=== PATIENT | female | born 1970 | race Two or more races ===

== ENCOUNTER 2019-08-15 12:34 | Day surgery (SDC) | payer OTHER ==
[2019-08-08 10:16] LABS: ABSOLUTE EOSINOPHILS # (AUTO) 0.2 10^3/uL (0.0-0.6); ABSOLUTE LYMPHOCYTES (AUTO) 1.3 10^3/uL (0.5-4.7); ABSOLUTE MONOCYTES (AUTO) 0.7 10^3/uL (0.1-1.4); ABSOLUTE NEUT (AUTO) 7.8 10^3/uL (1.7-8.2); BASOPHILS % (AUTO) 0.4 % (0-2); EOSINOPHILS % (AUTO) 1.9 % (0-6); HEMOGLOBIN 14.1 g/dL (12.0-15.5); LYMPHOCYTES % (AUTO) 12.7 % (13-45); MEAN CORPUSCULAR HGB CONC 34.3 g/dL (32.0-36.0); MEAN CORPUSCULAR VOLUME 102 fl (80-97); MONOCYTES % (AUTO) 6.7 % (3-13); PLATELET COUNT 293 10^3/uL (150-450); RED BLOOD COUNT 4.02 10^6/uL (3.72-5.28); SEGMENTED NEUTROPHILS % (AUTO) 78.3 % (42-78); TOTAL CELLS COUNTED % (AUTO) 100 %; WHITE BLOOD COUNT 9.9 10^3/uL (4.0-10.5)
[2019-08-08 10:43] LABS: ANION GAP 11 (5-19); BLOOD UREA NITROGEN 12 mg/dL (7-20); CALCIUM 9.5 mg/dL (8.4-10.2); CARBON DIOXIDE 25 mmol/L (22-30); CHLORIDE 100 mmol/L (98-107); GLUCOSE 105 mg/dL (75-110); POTASSIUM 4.4 mmol/L (3.6-5.0)
--- NOTE | 2019-08-08 12:04 | RADIOLOGY REPORT (SQ) ---
EXAM DESCRIPTION: CHEST PA/LATERAL COMPLETED DATE/TIME: 08/08/2019 11:01 am REASON FOR STUDY: PRE-OP COMPARISON: 01/23/2013 and 07/07/2013 EXAM PARAMETERS: NUMBER OF VIEWS: two views TECHNIQUE: Digital Frontal and Lateral radiographic views of the chest acquired. RADIATION DOSE: NA LIMITATIONS: none FINDINGS: LUNGS AND PLEURA: No opacities, masses or pneumothorax. No pleural effusion. MEDIASTINUM AND HILAR STRUCTURES: No masses or contour abnormalities. HEART AND VASCULAR STRUCTURES: Stable appearance, heart size at the upper limits normal. BONES: No acute findings. HARDWARE: None in the chest. OTHER: No other significant finding. IMPRESSION: 1. No significant interval changes since the prior examinations dating back to 01/23/2013 . No acute findings. TECHNICAL DOCUMENTATION: JOB ID: [id number] [employer]- All Rights Reserved Reading location - IP/workstation name: [email or web address]
--- NOTE | 2019-08-08 23:51 | EKG REPORT ---
SEVERITY:- ABNORMAL ECG - SINUS RHYTHM PROBABLE LEFT ATRIAL ABNORMALITY PROBABLE LEFT VENTRICULAR HYPERTROPHY : Confirmed by: Shanda Kingston MD 08-Aug-2019 23:50:13
[~2019-08-15 12:34] MED LIST: CEFAZOLIN SODIUM 2 GM in DEXTROSE 5%-WATER 100 ML IV PRN; DEXAMETHASONE SOD PHOSPHATE INJ 4 MG/1 ML VIAL ONE; FENTANYL CITRATE INJ/PF 100 MCG/2 ML AMPUL ONE; LACTATED RINGERS 1000 ML IV PRN; LIDOCAINE 0.5% INJ-PF (5 MG/ML) 50 ML SDV SUBCUT PRN; MIDAZOLAM 2 MG/2 ML INJ ONE; ONDANSETRON HCL INJ/PF 4 MG/2 ML SDV ONE; PROPOFOL INJ 200 MG/20 ML VIAL IV ONE
[2019-08-15] MEDS ORDERED: SUCCINYLCHOLINE CHLORIDE INJ 200 MG/10 ML VIAL ONE (14:13)
[2019-08-15] MEDS ORDERED: FAMOTIDINE INJ/PF 20 MG/2 ML SDV IV ONE (14:43)
[2019-08-15] MEDS ORDERED: METOCLOPRAMIDE HCL INJ/PF 10 MG/2 ML SDV ONE (14:43)
[2019-08-15] MEDS ORDERED: MIDAZOLAM 2 MG/2 ML INJ ONE ×3 (14:43→15:17)
[2019-08-15] MEDS ORDERED: LIDOCAINE 2% INJ (20 MG/ML) 20 ML MDV ONE (14:49)
[2019-08-15] MEDS ORDERED: LIDOCAINE 2%/EPINEPHRINE INJ 20 ML VIAL ONE (14:49)
[2019-08-15] MEDS ORDERED: ROPIVACAINE HCL 0.5% INJ/PF (5 MG/1 ML) 30 ML SDV ONE (14:50)
[2019-08-15] MEDS ORDERED: PROMETHAZINE HCL INJ 25 MG/1 ML VIAL IV PRN ×2 (18:44)
[2019-08-15] MEDS ORDERED: DIPHENHYDRAMINE HCL 50 MG/ML VIAL IV PRN (18:44)
[2019-08-15] MEDS ORDERED: MEPERIDINE HCL/PF INJ 25 MG/1 ML DISP.SYRIN IV PRN (18:44)
[2019-08-15] MEDS ORDERED: ONDANSETRON HCL INJ/PF 4 MG/2 ML SDV IV PRN ×2 (18:44→20:45)
[2019-08-15] MEDS ORDERED: FENTANYL CITRATE INJ/PF 100 MCG/2 ML AMPUL IV PRN ×3 (18:44)
[2019-08-15] MEDS ORDERED: MORPHINE SULFATE 10 MG/ML INJ IV PRN (18:44)
[2019-08-15] MEDS ORDERED: BUPIVACAINE HCL 0.5 % INJ/PF 30 ML SDV ONE (19:50)
[2019-08-15] MEDS ORDERED: HYDROMORPHONE HCL INJ/PF 2 MG/ML AMPULE IV PRN (20:45)
[2019-08-15] MEDS ORDERED: OXYCODONE-ACETAMINOPHEN 5-325 MG TABLET PO PRN (20:45)
--- NOTE | 2019-08-15 20:46 | Discharge Summary ---
Discharge Summary (SDC) - Discharge Final Diagnosis: Left distal radius malunion Date of Surgery: 08/15/19 Discharge Date: 08/15/19 Condition: Good Treatment or Instructions: Schedule Follow Up w/ Dr. Omid Thomas @ [facility] for Surgery to be seen in 10-14 days or as scheduled [place]: [employer]: [place]: Ice and elevate Keep splint clean/dry/intact, do not remove. If your fingers become numb please unwrap the Mehul wrap but leave the splint in place, if the sensation does not return within 30 minutes please return to the emergency department. May begin finger range of motion attempting to make full fist. Please use ibuprofen (Motrin or Advil) 600-800 mg every 8 hours as needed for pain or fever DO NOT TAKE w/ TORADOL may use once TORADOL complete. You may also use acetaminophen (Tylenol) 1000 mg every 4-6 hours as needed for pain or fever. Please be aware that many medications contain acetaminophen, do not exceed a total of 1000 mg of acetaminophen every 6 hours. If ibuprofen and acetaminophen are not sufficient for your pain you may take the Percocet/[place]. Please be aware that the Percocet/[place] does contain Tylenol. Stool softener of choice when on pain medication. USE OF [id number] IBUPROFEN: Ibuprofen (Advil, Nuprin, Medipren, Motrin IB) is a medication for fever and pain control. In addition, it has anti- inflammatory effects which may be beneficial, especially in the treatment of injuries. It's best to take ibuprofen with food. Persons with ulcer disease or allergy to aspirin should notify their physician of this before taking ibuprofen. Ibuprofen can be given every four to six hours, for a total of four doses daily. Age Pain or fever dose Antiinflammatory dose 6-8 yr 200 mg (1 tab) 200 mg (1 tab) 9-11 yr 200 mg (1 tab) 200-400 mg (1-2 tab) 11-14 yr 200-400 mg (1-2 tab) 400 mg (2 tab) 15-adult 400 mg (2 tab) 600 mg (3 tab) ORAL NARCOTIC MEDICATION: You have been given a prescription for pain control. This medication is a narcotic. It's best taken with food, as nausea can result if taken on an empty stomach. Don't operate machinery or drive within six hours of taking this medication. Do not combine this medicine with alcohol, or with any medication which can cause sedation (such as cold tablets or sleeping pills) unless you get permission from the physician. Narcotics tend to cause constipation. If possible, drink plenty of fluids and eat a diet high in fiber and fruits. Please be aware that prescription narcotics also have the potential for abuse. People become addicted to these medications because of the general sense of wellbeing that they induce. This feeling along with a significant reduction in tension, anxiety, and aggression provides a stimulating seductive quality to these drugs. Once your pain is under control, we encourage you to discard your unused narcotics. Prescriptions: Ketorolac Tromethamine [Toradol 10 mg Tablet] 10 mg PO Q8HP PRN #12 tablet PRN Reason: Oxycodone HCl [Oxycontin Sr 10 mg Tablet] 10 mg PO Q12 PRN #10 tab.sr.12h PRN Reason: Oxycodone HCl/Acetaminophen [Percocet 7.5-325 mg Tablet] 1 - 2 tab PO Q6 PRN #25 tab PRN Reason: Referrals: FRANCES RUBIO MD [Primary Care Provider] - Discharge Diet: As Tolerated Respiratory Treatments at Home: Deep Breathing/Coughing, Incentive Spirometer Discharge Activity: No Lifting Over 10 Pounds, No Lifting/Push/Pulling Report the Following to Your Physician Immediately: Fever over 101 Degrees, Unusual Bleeding, Redness, Swelling, Warmth, Increased Soreness
[2019-08-15] MEDS ORDERED: PROPOFOL INJ 200 MG/20 ML VIAL IV ONE (20:52)
--- NOTE | 2019-08-15 20:56 | Operative Report ---
Operative Report DATE OF SURGERY: 08/15/19 PREOPERATIVE DIAGNOSIS: 1. Retained painful hardware left wrist. 2. Distal r adius malunion left wrist. 3. Left carpal tunnel syndrome POSTOPERATIVE DIAGNOSIS: Same OPERATION: 1. Removal of deep hardware left wrist. 2. Corrective osteotomy left distal radius w/ revision ORIF distal radius. 3. Left Open carpal tunnel release SURGEON: EMILIA ROSENTHAL ANESTHESIA: GA COMPLICATIONS: None ESTIMATED BLOOD LOSS: 25cc PROCEDURE: Indication for above procedure: 49-year-old female who sustained a open left distal radius fracture. Patient underwent operative fixation and outside facility. She subsequently followed up with me with hardware failure and malunion of her distal radius fracture along with carpal tunnel syndrome. At that point we discussed treatment options including operative versus nonoperative intervention after discussing risks and benefits of operative seizure decision was made to proceed with operative treatment. Risks and benefits were explained patient verbalized understanding consented for surgical procedure. Procedure In Detail: Patient was seen and evaluated in the preoperative holding area. The LEFT upper extremity was initialized and marked. Patient received 2g of Ancef IV for bacterial prophylaxis. Patient was taken back to the operative room where tra nsferred to the operative table and placed under general anesthesia. Once they were adequately anesthetized a nonsterile tourniquet was placed on the upper extremity. A surgical team debriefing was performed ensuring all instrumentation was available, the surgical procedure was discussed with possible concerns reviewed. The upper extremity was prepped with chlorhexidine and alcohol and draped in a sterile fashion. A timeout was done identifying correct patient, procedure and extremity everyone in attendance agree with this and verbalized no concerns. The extremity was exsanguinated the tourniquet was inflated to 250 mmHg. Examination under anesthesia demonstrated considerable DRUJ instability. Previous skin incision was utilized and extended proximally 2 cm and distally 1 cm. Blunt dissection was performed. FCR tendon sheath was identified and released. Palmar cutaneous branch of the median nerve was also identified and retracted. FPL tendon was carefully elevated from underlying scar tissue over the plate. There is no remnant of the pronator quadratus at the level of the plate. Sharp dissection was performed over the plate to expose all retained hardware. All 8 screws and plate were removed. Screw holes were debrided with a curette. The brachioradialis was then released from the styloid to further exposed the distal radius. A Acumed extra-articular distal radius 5 hole plate was then placed along the distal fragment and a anatomic position as covered by patient's anatomy and previous malunion. This was secured with 2 K wires distally and C-arm fluoroscopy was obtained confirming appropriate placement and adequate angulation to allow correction of patient's radial deviation deformity. Once optimal plate alignment was confirmed K wires were left in the plate and plate removed. Bone was then marked parallel to the K wires and with an oscillating saw osteotomy performed well phlebotomist medical lab assistant held irrigation. Osteotome was then utilized to complete the osteotomy dorsally. The plate was then placed over the K wires. Child Attendant held reduction of the osteotomy and plate was secured proximally with K wires and a reduction clamp. C-arm fluoroscopy was obtained mistreating acceptable alignment with zoroastrianism of radial inclination and improve radial height and normal volar tilt. There was improved ulnar variance along with DRUJ instability. Patient continued to have malunion of the lunate facet however it was adequately healed given patient's high likelihood of arthrosis at the radiolunate articulation did not feel intra-articular osteotomy was warranted with thought that zoroastrianism of patient's radial inclination and alignment may unload the radial lunate joint. Plate was brought flush down to the volar cortex with a reduction tenaculum. The Acumed plate was then secured distally with bicortical screw bringing the plate firmly down to bone. Remaining holes were drilled to but not through the far cortex. One fixed angle locking screw and 2 variable angle screws were placed. Previous cortex screw was exchanged for appropriate sized variable angle screw. Under C-arm fluoroscopy the radial styloid screws were then drilled and appropriate size variable angle screws placed. Proximal aspect of the plate was then secured with bicortical fixation in the dynamic hole. Further height was obtained via traction. Most proximal screw hole was then secured with bicortical fixation. Remaining 2 proximal holes were filled with appropriate size locking screw. Final C-arm fluoroscopy was then obtained demonstrating zoroastrianism of alignment. There was no crepitus with wrist range of motion. Previous DRUJ instability notably improved. Attention then turned to open carpal tunnel release. Longitudinal skin incision was made along the radial border of the ring finger. Blunt dissection was performed. A small peripheral veins were coagulated with bipolar cautery. Palmar fascia was incised in line with the skin incision identifying the transverse carpal ligament. Transverse carpal ligament was then released to the adipose protecting the superficial palmar arch. The transverse carpal ligament and antebrachial fascia was incised through the carpal tunnel incision and volar Harris incision to ensure adequate release. There was evidence of patent median artery. Neuro lysis was performed to the median nerve as well within the volar Harris approach to ensure no evidence of neural fibrosis. There is no remaining compression proximally or distally. There was notable compression hourglassing of the median nerve at the wrist flexion crease. Wound was copiously irrigated with normal saline. Skin was closed with interrupted horizontal mattress 4-0 nylon sutures. All wounds were copiously irrigated with normal saline. Vitoss synthetic bone graft was then impacted into the osteotomy site. Tourniquet was deflated. Any peripheral bleeding was controlled with bipolar cautery until the wound was dry. Deep soft tissues were closed with interrupted 4-0 Monocryl suture. Subcutaneous tissues were closed with interrupted 4-0 Monocryl suture. Skin was closed with running horizontal mattress 4-0 nylon suture. Patient was placed in a sugar tong splint with the wrist at neutral position. Sponge counts, instrument counts, needle counts were correct. Patient was then awoken from anesthesia. Transferred from the operating room table to the operating room stretcher. There was no intraoperative complications patient tolerated procedure well stable to PACU. Postoperative plan: Patient will follow in the office in 2 weeks at which point we will obtain radiographs and proceed with wound check. Patient will be placed in a short arm cast.
[2019-08-15] MEDS ORDERED: KETOROLAC TROMETHAMINE INJ/PF 30 MG/1 ML SDV ONE (21:14)
[2019-08-15] MEDS ORDERED: ACETAMINOPHEN 1,000 MG/100 ML RTUPB IV ONE (21:15)
[2019-08-15 22:10] VITALS: BP 166/104
--- NOTE | 2019-08-16 08:43 | RADIOLOGY REPORT (SQ) ---
EXAM DESCRIPTION: NO CHG FLUORO; WRIST LEFT 3 VIEWS COMPLETED DATE/TIME: 08/15/2019 8:33 pm REASON FOR STUDY: HARDWARE REMOVAL/ORIF L WRIST S52.532P COLLES' FRACTURE OF LEFT RADIUS, SUBS FOR CLOS FX W G56.02 CARPAL TUNNEL SYNDROME, LEFT UPPER LIMB COMPARISON: None. FLUOROSCOPY TIME: 1 minutes 10 seconds 3 images saved to PACS. TECHNIQUE: Intra-operative images acquired during surgical procedure to evaluate progress. NUMBER OF IMAGES: 3 LIMITATIONS: None. FINDINGS: Images of the wrist show hardware in place, reported revision. Correlate with operative n ote. IMPRESSION: IMAGE(S) OBTAINED DURING PROCEDURE. COMMENT: Quality ID [id number]: Final reports for procedures using fluoroscopy that document radiation exp osure indices, or exposure time and number of fluorographic images (if radiation exposure indices are not available) Please consult full operative report of the attending physician for description of the procedure. TECHNICAL DOCUMENTATION: JOB ID: [id number] [employer]- All Rights Reserved Reading location - IP/workstation name: [email or web address]
--- NOTE | 2019-08-16 08:43 | RADIOLOGY REPORT (SQ) ---
EXAM DESCRIPTION: NO CHG FLUORO; WRIST LEFT 3 VIEWS COMPLETED DATE/TIME: 08/15/2019 8:33 pm REASON FOR STUDY: HARDWARE REMOVAL/ORIF L WRIST S52.532P COLLES' FRACTURE OF LEFT RADIUS, SUBS FOR CLOS FX W G56.02 CARPAL TUNNEL SYNDROME, LEFT UPPER LIMB COMPARISON: None. FLUOROSCOPY TIME: 1 minutes 10 seconds 3 images saved to PACS. TECHNIQUE: Intra-operative images acquired during surgical procedure to evaluate progress. NUMBER OF IMAGES: 3 LIMITATIONS: None. FINDINGS: Images of the wrist show hardware in place, reported revision. Correlate with operative n ote. IMPRESSION: IMAGE(S) OBTAINED DURING PROCEDURE. COMMENT: Quality ID [id number]: Final reports for procedures using fluoroscopy that document radiation exp osure indices, or exposure time and number of fluorographic images (if radiation exposure indices are not available) Please consult full operative report of the attending physician for description of the procedure. TECHNICAL DOCUMENTATION: JOB ID: [id number] [employer]- All Rights Reserved Reading location - IP/workstation name: [email or web address]
== END 2019-08-15 22:25 | disposition home or self-care (01) ==
LOC: OROUT 12:34
PROVIDERS: ATTEND Orthopaedic Surgery
DX: S52.532P Colles' fracture of left radius, subsequent encounter for closed fracture with malunion (principal); X58.XXXD Exposure to other specified factors, subsequent encounter; G56.02 Carpal tunnel syndrome, left upper limb; T84.84XA Pain due to internal orthopedic prosthetic devices, implants and grafts, initial encounter; Y83.8 Other surgical procedures as the cause of abnormal reaction of the patient, or of later complication, without mention of misadventure at the time of the procedure; Y92.89 Other specified places as the place of occurrence of the external cause; E11.9 Type 2 diabetes mellitus without complications; I10 Essential (primary) hypertension; G47.33 Obstructive sleep apnea (adult) (pediatric)
CPT/HCPCS: 93005; 36415; 82962; 85025; 80048; 71046; 73110; 93010; 01830; 64721; 20680; 25405; J2795; J2250; J3490 ×3; J0690; J1100; J3010; J1885; J2765; J0330; J2405; J7060; J2704; S0028; J0131; C1713; C1769; C1898

== ENCOUNTER 2020-05-07 08:48 | Day surgery (SDC) | payer OTHER ==
[2020-05-03 10:08] LABS: HEMATOCRIT 40.4 % (36.0-47.0); HEMOGLOBIN 14.2 g/dL (12.0-15.5); MEAN CORPUSCULAR HGB CONC 35.2 g/dL (32.0-36.0); MEAN CORPUSCULAR VOLUME 103 fl (80-97); PLATELET COUNT 268 10^3/uL (150-450); RED BLOOD COUNT 3.95 10^6/uL (3.72-5.28); RED CELL DISTRIBUTION WIDTH 14.2 % (11.5-14.0); WHITE BLOOD COUNT 8.5 10^3/uL (4.0-10.5)
[2020-05-03 10:16] LABS: APPEARANCE,URINE SLIGHTLY-CLOUDY; BILIRUBIN,URINE NEGATIVE (NEGATIVE); COLOR,URINE YELLOW; GLUCOSE, URINE NEGATIVE (NEGATIVE); KETONES,URINE 20 mg/dL (NEGATIVE); LEUKOCYTE ESTERASE,URINE NEGATIVE (NEGATIVE); NITRITE,URINE NEGATIVE (NEGATIVE); PROTEIN,URINE 100 mg/dL (NEGATIVE); URINE SPECIFIC GRAVITY 1.019; UROBILINOGEN,URINE NEGATIVE mg/dL (<2.0)
[2020-05-03 10:27] LABS: ANION GAP 11 (5-19); BLOOD UREA NITROGEN 14 mg/dL (7-20); CALCIUM 9.6 mg/dL (8.4-10.2); CARBON DIOXIDE 24 mmol/L (22-30); CHLORIDE 101 mmol/L (98-107); GLUCOSE 122 mg/dL (75-110); POTASSIUM 4.3 mmol/L (3.6-5.0)
--- NOTE | 2020-05-03 12:18 | RADIOLOGY REPORT (SQ) ---
EXAM DESCRIPTION: CHEST PA/LATERAL IMAGES COMPLETED DATE/TIME: 05/03/2020 11:04 am REASON FOR STUDY: PRE-OP COMPARISON: 08/08/2019 EXAM PARAMETERS: NUMBER OF VIEWS: two views TECHNIQUE: Digital Frontal and Lateral radiographic views of the chest acquired. RADIATION DOSE: NA LIMITATIONS: none FINDINGS: LUNGS AND PLEURA: No opacities, masses or pneumothorax. No pleural effusion. MEDIASTINUM AND HILAR STRUCTURES: No masses or contour abnormalities. HEART AND VASCULAR STRUCTURES: Heart normal size. No evidence for failure. BONES: No acute findings. HARDWARE: None in the chest. OTHER: No other significant finding. IMPRESSION: NO SIGNIFICANT RADIOGRAPHIC FINDING IN THE CHEST. TECHNICAL DOCUMENTATION: JOB ID: [id number] 2010 [employer]- All Rights Reserved Reading location - IP/workstation name: [email or web address]
--- NOTE | 2020-05-03 13:02 | EKG REPORT ---
SEVERITY:- ABNORMAL ECG - SINUS TACHYCARDIA FIRST DEGREE AV BLOCK PROBABLE LEFT ATRIAL ABNORMALITY PROBABLE LEFT VENTRICULAR HYPERTROPHY : Confirmed by: Cayetano Hurley MD 03-May-2020 13:01:38
[~2020-05-07 08:48] MED LIST changes: +CEFAZOLIN 2 GM/D5W RTU 2 GM/50 ML RTUPB IV PRN; -CEFAZOLIN SODIUM 2 GM in DEXTROSE 5%-WATER 100 ML IV PRN; -DEXAMETHASONE SOD PHOSPHATE INJ 4 MG/1 ML VIAL ONE; +SUCCINYLCHOLINE CHLORIDE INJ 200 MG/10 ML VIAL ONE
[2020-05-07] MEDS ORDERED: CEFAZOLIN 2 GM/D5W RTU 2 GM/50 ML RTUPB IV ONE (10:28)
[2020-05-07] MEDS ORDERED: LIDOCAINE 1% INJ-PF (10 MG/ML) 30 ML SDV ONE (10:32)
[2020-05-07] MEDS ORDERED: LIDOCAINE 0.5% INJ-PF (5 MG/ML) 50 ML SDV ONE (11:21)
[2020-05-07] MEDS ORDERED: BUPIVACAINE HCL 0.5 % INJ/PF 30 ML SDV ONE (11:27)
[2020-05-07] MEDS ORDERED: MEPERIDINE HCL/PF INJ 25 MG/1 ML DISP.SYRIN IV PRN (13:20)
[2020-05-07] MEDS ORDERED: PROMETHAZINE HCL INJ 25 MG/1 ML VIAL IV PRN ×2 (13:20)
[2020-05-07] MEDS ORDERED: FENTANYL CITRATE INJ/PF 100 MCG/2 ML AMPUL IV PRN ×3 (13:20)
[2020-05-07] MEDS ORDERED: ONDANSETRON HCL INJ/PF 4 MG/2 ML SDV IV PRN ×2 (13:20→14:17)
[2020-05-07] MEDS ORDERED: DIPHENHYDRAMINE HCL 50 MG/ML VIAL IV PRN (13:20)
[2020-05-07] MEDS ORDERED: MORPHINE SULFATE 10 MG/ML INJ IV PRN (13:20)
[2020-05-07] MEDS ORDERED: HYDROMORPHONE HCL INJ/PF 2 MG/ML AMPULE IV PRN (14:17)
[2020-05-07] MEDS ORDERED: OXYCODONE-ACETAMINOPHEN 5-325 MG TABLET PO PRN (14:17)
--- NOTE | 2020-05-07 14:18 | Discharge Summary ---
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 Omid Thomas @ [facility] for Surgery to be seen in 10-14 days or as scheduled [place]: [place]: [place]: Ice and elevate Keep splint clean/dry/intact, do not remove. If your fingers become numb please unwrap the Mehul wrap but leave the splint in place, if the sensation does not return within 30 minutes please return to the emergency department. May begin finger range of motion attempting to make full fist. Please use ibuprofen (Motrin or Advil) 600-800 mg every 8 hours as needed for pain or fever DO NOT TAKE w/ TORADOL may use once TORADOL complete. You may also use acetaminophen (Tylenol) 1000 mg every 4-6 hours as needed for pain or fever. Please be aware that many medications contain acetaminophen, do not exceed a total of 1000 mg of acetaminophen every 6 hours. If ibuprofen and acetaminophen are not sufficient for your pain you may take the Percocet/[place]. Please be aware that the Percocet/[place] does contain Tylenol. Stool softener of choice when on pain medication. USE OF [id number] IBUPROFEN: Ibuprofen (Advil, Nuprin, Medipren, Motrin IB) is a medication for fever and pain control. In addition, it has anti- inflammatory effects which may be beneficial, especially in the treatment of injuries. It's best to take ibuprofen with food. Persons with ulcer disease or all ergy to aspirin should notify their physician of this before taking ibuprofen. Ibuprofen can be given every four to six hours, for a total of four doses daily. Age Pain or fever dose Antiinflammatory dose 6-8 yr 200 mg (1 tab) 200 mg (1 tab) 9-11 yr 200 mg (1 tab) 200-400 mg (1-2 tab) 11-14 yr 200-400 mg (1-2 tab) 400 mg (2 tab) 15-adult 400 mg (2 tab) 600 mg (3 tab) ORAL NARCOTIC MEDICATION: You have been given a prescription for pain control. This medication is a narcotic. It's best taken with food, as nausea can result if taken on an empty stomach. Don't operate machinery or drive within six hours of taking this medication. Do not combine this medicine with alcohol, or with any medication which can cause sedation (such as cold tablets or sleeping pills) unless you get permission from the physician. Narcotics tend to cause constipation. If possible, drink plenty of fluids and eat a diet high in fiber and fruits. Please be aware that prescription narcotics also have the potential for abuse. People become addicted to these medications because of the general sense of wellbeing that they induce. This feeling along with a significant reduction in tension, anxiety, and aggression provides a stimulating seductive quality to these drugs. Once your pain is under control, we encourage you to discard your unused narcotics. Prescriptions: Oxycodone HCl [Oxycontin Sr 10 mg Tablet] 10 mg PO Q12 PRN #14 tab.sr.12h PRN Reason: Oxycodone HCl/Acetaminophen [Percocet 7.5-325 mg Tablet] 1 tab PO Q6 PRN #25 tab PRN Reason: Referrals: FRANCES RUBIO MD [Primary Care Provider] - Discharge Diet: As Tolerated Respiratory Treatments at Home: Deep Breathing/Coughing, Incentive Spirometer Discharge Activity: No Driving, No Lifting Over 10 Pounds, No Lifting/Push/Pulling Report the Following to Your Physician Immediately: Fever over 101 Degrees, Unusual Bleeding, Redness, Swelling, Warmth, Increased Soreness
[2020-05-07] MEDS: FENTANYL CITRATE INJ/PF 100 MCG/2 ML AMPUL ONE ×2 (14:21→14:26)
[2020-05-07] MEDS ORDERED: LABETALOL HCL INJ 20 MG/4 ML DISP.SYRIN IV ONE (14:26)
[2020-05-07] MEDS ORDERED: FENTANYL CITRATE INJ/PF 100 MCG/2 ML AMPUL ONE (14:26)
--- NOTE | 2020-05-07 14:42 | Operative Report ---
Operative Report DATE OF SURGERY: 05/07/20 PREOPERATIVE DIAGNOSIS: Right wrist ulnar impaction. 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 Ulnar shortening osteotomy left wrist. 2. Bone grafting left distal radius osteotomy nonunion with left proximal tibial autograft SURGEON: EMILIA ROSENTHAL ANESTHESIA: GA COMPLICATIONS: None ESTIMATED BLOOD LOSS: Less than 25 cc PROCEDURE: Indication for above procedure: 50-year-old female who underwent open reduction to fixation of her left distal radius and subsequently developed significant malunion with hardware failure and collapse. Patient was sent to [place] for further evaluation and treatment. She underwent distal radius osteotomy in July 2019 which significantly improved patient's alignment and pain although she continued to have persistent nonunion at the osteotomy site along with ulnar-sided wrist pain. After discussing risk and benefits of operative versus nonoperative intervention decision was made to proceed with operative treatment which included ulnar shortening osteotomy left wrist with bone grafting distal radius nonunion utilizing proximal tibial autograft. Procedure In Detail: Patient was seen and evaluated in the preoperative holding area. The left upper extremity was initialized and marked. Patient received 2g of Ancef IV for bacterial prophylaxis. Patient was taken back to the operative room where transferred to the operative table and placed under general anesthesia. Once they were adequately anesthetized a nonsterile tourniquet was placed on the upper extremity. A surgical team debriefing was performed ensuring all instrumentation was available, the surgical procedure was discussed with possible concerns reviewed. The upper extremity was prepped with chlorhexidine and alcohol and draped in a sterile fashion. Left lower extremity was prepped with ChloraPrep and draped in a sterile fashion. A timeout was done identifying correct patient, procedure and extremity everyone in attendance agree with this and verbalized no concerns. The extremity was exsanguinated the tourniquet was inflated to 250 mmHg. Longitudinal skin incision was made along the ulnar border of the forearm blunt dissection was performed. Dorsal ulnar sensory nerve was identified and retracted. Interval between the ECU/FCU was then opened supraperiosteal dissection was performed over the distal ulna. Once adequately exposed the Acumed ulnar shortening osteotomy plate was secured provisionally. C-arm was obtained confirming appropriate placement of the plate. Preoperative templating demonstrated 7 mm of ulnar positive variance. And thus decision was made to proceed with 7 radial meters of shortening. Plate was then fixated distally with a bicortical screw. The dynamic holes proximally was then drilled and locking peg inserted. The osteotomy guide was then placed and provisionally fixated with a K wire. With the oscillating saw osteotomy was made while maintaining saline irrigation to avoid bone necrosis. The osteotomy guide was then shortened 7 mm as per preoperative template and once again osteotomy made. Wafer of bone was then successfully removed. The osteotomy site was reduced with a reduction clamp and compressed with the compression tenaculum. C-arm was obtained demonstrating reduction of the osteotomy site and appropriate amount of shortening. A bicortical screw was then placed through the compression hole providing further interfragmentary compression. A interfragmentary screw was then placed perpendicular to the osteotomy site. Remaining screw proximally was filled with a bicortical locking screw. Distal aspect of the plate was secured with 3 addit ional locking screws switching out 1 of the previous bicortical screws. At completion patient's DRUJ laxity notably improved. Wound was copiously irrigated with normal saline. A peripheral bleeding was controlled with bipolar cautery. Any remaining defect along the plate and the osteotomy site was filled with autograft. FCU/issue interval was closed with interrupted 2-0 Vicryl suture. Subcutaneous tissues were closed with 3-0 Monocryl suture. Skin was closed with running subcuticular 4-0 Monocryl reinforced dermabond. Tourniquet was then deflated. Attention then turned to proximal tibial autograft harvest. Longitudinal skin incision was made along Gerdy's tubercle. Blunt dissection performed. Any peripheral bleeding was controlled with cautery. Once Gerdy's tubercle was identified and confirmed with C-arm fluoroscopy fascia was opened and osteotomy utilized along 3 sides to elevate the cortex. Proximal tibial autograft was then obtained under C arm fluoroscopy to the articular surface was not violated. Wound was then copiously irrigated with normal saline. Defect was filled with cortical cancellus bone graft and the cortex hinge was then impacted back into position. Fascia was closed with interrupted 0 Vicryl suture. Subcutaneous tissues closed with 2-0 Vicryl suture. Skin was closed with running subcuticular 4-0 Monocryl reinforced with a Dermabond and Steri- Strips. The nonunion site along the distal radius was then isolated with C-arm fluoroscopy. Extremity was then exsanguinated and tourniquet reinflated to 250 mmHg. Longitudinal skin incision was made dorsally along Zbigniew's tubercle. EPL tendon and EDC tendons were identified and retracted ulnarly and the second dorsal compartment was elevated radially to expose the nonunion site. Periosteum from the nonunion site was then elevated and the nonunion site was extensively debrided with rondure, osteotomes and a curette. Create was placed down the radial shaft proximally. Debridement was continued until normal appearing bleeding bone was isolated. Wound was copiously irrigated with normal saline. C-arm was obtained confirming adequate debridement wound. A defect was then filled with proximal tibial autograft and osteo-amp allograft. This adequately filled the defect. C arm was obtained to confirm adequate impaction. Once satisfied with bone graft at the defect subcutaneous tissues were closed with 3-0 Monocryl suture. Skin was closed with running subcuticular 4-0 Monocryl suture. Wound was reinforced with Dermabond and Steri-Strips. A total of 30 cc of 0.5% as indicated without epinephrine was injected for postoperative pain control. Patient was then placed in a sugar tong splint maintaining neutral position of the wrist. Sponge counts, instrument counts, needle counts were correct. Patient was then awoken from anesthesia. Transferred from the operating room table to the operating room stretcher. There was no intraoperative complications patient tolerated procedure well stable to PACU. Postoperative plan: Patient will follow in the office in 2 weeks at which point we will obtain radiographs and transition to short arm cast. Patient will begin bone stimulator immediately.
[2020-05-07] MEDS ORDERED: OXYCODONE-ACETAMINOPHEN 5-325 MG TABLET ONE (15:03)
--- NOTE | 2020-05-07 15:33 | RADIOLOGY REPORT (SQ) ---
EXAM DESCRIPTION: NO CHG FLUORO; FOREARM LEFT IMAGES COMPLETED DATE/TIME: 05/07/2020 2:35 pm REASON FOR STUDY: ORIF L WRIST; ORIF COMPARISON: None. FLUOROSCOPY TIME: 30 seconds 5 Images saved to PACS LIMITATIONS: None. PROCEDURE: ORIF left forearm and wrist FINDINGS: Images from fluoro document placement of compression plates on the radius and ulna with mu ltiple screws. IMPRESSION: ORIF left forearm and wrist. Refer to operative note for further information. COMMENT: PQRS 6045F: Fluoroscopy time of the procedure is documented in the report. TECHNICAL DOCUMENTATION: JOB ID: [id number] 2010 [employer]- All Rights Reserved Reading location - IP/workstation name: [email or web address]
--- NOTE | 2020-05-07 15:33 | RADIOLOGY REPORT (SQ) ---
EXAM DESCRIPTION: NO CHG FLUORO; FOREARM LEFT IMAGES COMPLETED DATE/TIME: 05/07/2020 2:35 pm REASON FOR STUDY: ORIF L WRIST; ORIF COMPARISON: None. FLUOROSCOPY TIME: 30 seconds 5 Images saved to PACS LIMITATIONS: None. PROCEDURE: ORIF left forearm and wrist FINDINGS: Images from fluoro document placement of compression plates on the radius and ulna with mu ltiple screws. IMPRESSION: ORIF left forearm and wrist. Refer to operative note for further information. COMMENT: PQRS 6045F: Fluoroscopy time of the procedure is documented in the report. TECHNICAL DOCUMENTATION: JOB ID: [id number] 2010 [employer]- All Rights Reserved Reading location - IP/workstation name: [email or web address]
[2020-05-07 18:09] VITALS: BP 140/90
== END 2020-05-07 16:00 | disposition home or self-care (01) ==
LOC: OROUT 08:48
PROVIDERS: ATTEND Orthopaedic Surgery
DX: S52.532P Colles' fracture of left radius, subsequent encounter for closed fracture with malunion (principal); X58.XXXD Exposure to other specified factors, subsequent encounter; M21.832 Other specified acquired deformities of left forearm; G56.02 Carpal tunnel syndrome, left upper limb; I10 Essential (primary) hypertension; R01.1 Cardiac murmur, unspecified; Z88.8 Allergy status to other drugs, medicaments and biological substances
CPT/HCPCS: 25390; 25405; 93005; 36415; 87070; 87205; 85027; 87635; 87075; 80048; 81001; 71046; 73090; 93010; J2250; J3490 ×2; J3010; J0330; J2405; J2704; J0690; C9803; 01830